=== PATIENT | male | born 1970 | race Caucasian/White ===

== ENCOUNTER 2022-01-28 00:21 | Emergency (ER) | payer MEDICAID ==
[~2022-01-28] VITALS: Ht 182.9 cm; Wt 108.9 kg
[2022-01-28 00:30] VITALS: BP_SYST 162
--- NOTE | 2022-01-28 00:30 | NUR ---
Placed in room 6 . Placed on shelter monitor, blood pressure machine and pulse oximeter. To gown for exam. Side rails up. Report given to Luis Alberto WILKINS.
[2022-01-28 00:44] VITALS: BP_SYST 138
--- NOTE | 2022-01-28 01:11 | NUR ---
RN STUDENT OBTAINED COVID AND FLU SWAB LABELED AND SENT TO LAB
--- NOTE | 2022-01-28 01:26 | NUR ---
RADHA Jessica at bedside examining patient.
[2022-01-28 01:46] LABS: BILIRUBIN,URINE NEGATIVE (NEGATIVE); BLOOD, URINE NEGATIVE (NEGATIVE); COLOR,URINE YELLOW (YELLOW); GLUCOSE,URINE NEGATIVE (NEGATIVE); KETONES,URINE TRACE (NEGATIVE); LEUKOCYTE ESTERASE ,URINE NEGATIVE (NEGATIVE); NITRITE, URINE POSITIVE (NEGATIVE); PH,URINE 5.5 (5.0-8.0); PROTEIN URINE TRACE (NEGATIVE)
[2022-01-28 01:52] LABS: CLARITY/URINE HAZY (CLEAR)
[2022-01-28 02:06] LABS: BACTERIA,URINE FEW /HPF (None Seen); RBC,URINE 0-3 /HPF (0-3); WBC,URINE 0-3 /HPF (0-3)
[2022-01-28 02:07] LABS: MUCUS,URINE None Seen /LPF (None Seen)
[2022-01-28] MEDS ORDERED: IPRATROPIUM/ALBUTEROL SULFATE 3 ML AMPUL.NEB (DUONEB) INH ONE (02:15)
[2022-01-28] MEDS ORDERED: predniSONE 20 MG TABLET PO ONE (02:15)
[2022-01-28 02:21] LABS: BARBITURATE, URINE NEGATIVE (NEG <=200); METHAMPHETAMINES SCREEN,URINE POSITIVE (NEG <=500); URINE AMPHETAMINE POSITIVE (NEG <=500)
[2022-01-28 02:22] LABS: BENZODIAZEPINE, URINE NEGATIVE (NEG <=150); CANNABINOID, URINE NEGATIVE (NEG <=50); COCAINE, URINE NEGATIVE (NEG <=150); OPIATE, URINE NEGATIVE (NEG <=100); PHENCYCLIDINE SCREEN,URINE NEGATIVE (NEG <=25); UR TRICYCLIC ANTIDEPRESSANTS NEGATIVE (NEG <=300); URINE METHADONE NEGATIVE (NEG <=200); URINE OXYCODONE SCREEN NEGATIVE (NEG <=100); URINE PROPOXYPHENE SCREEN NEGATIVE (NEG <=300)
--- NOTE | 2022-01-28 02:53 | NUR ---
Patient does not wish to proceed with medical care recommended by DR ELDRIDGE. Patient given information related to possible complications, up to and including , which could occur as a result of leaving hospital at this time. Patient verbalizes understanding of risks involved leaving against medical advice. Patient has signed AMA form.
== END 2022-01-28 02:53 | disposition left against medical advice (07) ==
LOC: SED 00:21
DX: J44.1 Chronic obstructive pulmonary disease with (acute) exacerbation (principal); R09.02 Hypoxemia; F15.10 Other stimulant abuse, uncomplicated; F17.200 Nicotine dependence, unspecified, uncomplicated; Z88.0 Allergy status to penicillin; Z79.899 Other long term (current) drug therapy; Z20.822 Contact with and (suspected) exposure to COVID-19
CPT/HCPCS: 99284; 71045; 87426; 80307; 36415; 94640; 87804 ×2; 81000; J7512